=== PATIENT | female | born 1990 | race African-American/Black ===

== ENCOUNTER 2016-12-04 08:12 | Emergency (ER) | payer OTHER ==
[~2016-12-04] VITALS: Ht 157.5 cm; Wt 113.4 kg
[~2016-12-04 08:12] MED LIST: FLAGYL500 MG PO; NOHOMEMEDICATIONS
[2016-12-04] MEDS ORDERED: ACYCLOVIR 400400 MG PO (08:40)
[2016-12-04 09:18] LABS: URINE BILIRUBIN NEGATIVE (Negative); URINE BLOOD NEGATIVE (Negative); URINE COLOR YELLOW; URINE GLUCOSE-RANDOM* NEGATIVE (Negative); URINE KETONES TRACE (Negative); URINE LEUKOCYTES-REFLEX 1+ (Negative); URINE PROTEIN (DIPSTICK) NEGATIVE (Negative); URINE UROBILINOGEN 0.2 E.U./dl (0.2-1.0)
[2016-12-04 09:50] LABS: CASTS None Seen /LPF (None Seen); CRYSTALS None Seen /LPF (None Seen); SQUAMOUS >10 Many /LPF (0-3)
[2016-12-04 09:51] LABS: URINE RBC None Seen /HPF (0-2); URINE WBC-REFLEX 6-15 Few /HPF (0-5)
[2016-12-04 10:40] VITALS: BP 116/66
[2016-12-05 21:08] LABS: CHLAMYDIA TRACHOMATIS-PCR Positive (Negative); NEISSERIA GONORRHEA-PCR Negative (Negative)
== END 2016-12-04 10:54 | disposition home or self-care (01) ==
LOC: ER 08:12
PROVIDERS: Emergency Medicine
DX: N89.8 Other specified noninflammatory disorders of vagina (principal); R10.30 Lower abdominal pain, unspecified; K21.9 Gastro-esophageal reflux disease without esophagitis; F12.10 Cannabis abuse, uncomplicated

== ENCOUNTER 2017-01-22 10:45 | Emergency (ER) | payer OTHER ==
[~2017-01-22] VITALS: Ht 160 cm; Wt 120.2 kg
[~2017-01-22 10:45] MED LIST changes: +ACYCLOVIR 400400 MG PO
[2017-01-22 11:18] LABS: ABSOLUTE NEUTROPHILS 2.6 thou/uL (1.4-8.2); BASOPHILS 1.2 % (0.0-2.0); EOSINOPHILS 0.8 % (0.0-3.0); HEMATOCRIT 35.6 % (37.0-47.0); HEMOGLOBIN 11.4 gm/dL (12.0-15.0); LYMPHOCYTES 35.3 % (24.0-44.0); MCH 25.7 pg (26.0-34.0); MCHC 32.1 g/dL (28.0-37.0); MONOCYTES 7.2 % (1.0-8.0); PLATELET COUNT 198 thou/uL (150-400); POLYS 55.5 % (36.0-66.0); RBC 4.44 mil/uL (4.20-5.00); RDW 14.7 % (10.5-14.5); WBC 4.7 thou/uL (4.0-11.0)
[2017-01-22] MEDS ORDERED: NOHOMEMEDICATIONS (11:19)
[2017-01-22 11:20] LABS: MANUAL DIFF NO
[2017-01-22 11:23] LABS: CALCIUM 8.7 mg/dL (8.5-10.1); CREATININE 0.7 mg/dL (0.6-1.0); POTASSIUM 3.7 mmol/L (3.5-5.1)
[2017-01-22 11:30] LABS: ALBUMIN 3.3 g/dL (3.4-5.0); TOTAL BILIRUBIN 0.3 mg/dL (<0.1-1.0); TOTAL PROTEIN 6.7 g/dL (6.4-8.2)
[2017-01-22 11:49] LABS: URINE BILIRUBIN NEGATIVE (Negative); URINE BLOOD 3+ (Negative); URINE GLUCOSE-RANDOM* NEGATIVE (Negative); URINE KETONES NEGATIVE (Negative); URINE PROTEIN (DIPSTICK) NEGATIVE (Negative); URINE SPECIFIC GRAVITY 1.015 (1.003-1.035); URINE UROBILINOGEN 0.2 E.U./dl (0.2-1.0)
[2017-01-22 11:50] LABS: URINE COLOR DARK YELLOW; URINE LEUKOCYTES-REFLEX TRACE (Negative)
[2017-01-22 11:55] LABS: CASTS None Seen /LPF (None Seen); CRYSTALS None Seen /LPF (None Seen); SQUAMOUS 0-3 Few /LPF (0-3); URINE RBC >20 Many /HPF (0-2)
[2017-01-22 11:56] LABS: URINE WBC-REFLEX 0-5 Rare /HPF (0-5)
[2017-01-22] MEDS ORDERED: BENTYL 20 MG TA20 M1 PO (13:21)
[2017-01-22] MEDS ORDERED: ZOFRAN ODT4 M1 PO (13:21)
[2017-01-22 13:49] VITALS: BP 105/54
== END 2017-01-22 13:50 | disposition home or self-care (01) ==
LOC: ER 10:45
PROVIDERS: Physician Assistant
DX: R10.11 Right upper quadrant pain (principal); R11.2 Nausea with vomiting, unspecified; K21.9 Gastro-esophageal reflux disease without esophagitis